=== PATIENT | male | born 2000 | race Caucasian/White ===

== ENCOUNTER 2019-03-12 06:12 | Emergency (ER) | payer BC ==
[~2019-03-12] VITALS: Ht 172.7 cm; Wt 70.5 kg
[2019-03-12 06:18] VITALS: BP 114/76; TEMP 97.5
[2019-03-12 07:20] VITALS: PULSE 67
== END 2019-03-12 07:20 | disposition home or self-care (01) ==
LOC: COL.ER 06:12
DX: S69.91XA Unspecified injury of right wrist, hand and finger(s), initial encounter (principal); W17.89XA Other fall from one level to another, initial encounter; Y92.59 Other trade areas as the place of occurrence of the external cause
CPT/HCPCS: Q4021